=== PATIENT | female | born 1995 ===

== ENCOUNTER 2019-03-07 21:26 | Inpatient (IN) | payer MEDICAID ==
[2019-03-08] MEDS ORDERED: TERBUTALINE 1 MG/1 ML INJ SUB-Q PRN (01:38)
[2019-03-08] MEDS ORDERED: MINERAL OIL 30 ML ORAL LIQD PO PRN (01:38)
[2019-03-08] MEDS ORDERED: ePHEDrine SULFATE 50 MG/1 ML INJ IV PRN ×2 (01:38→04:04)
[2019-03-08] MEDS ORDERED: BUTORPHANOL 2 MG/1 ML INJ IV PRN (01:38)
[2019-03-08] MEDS ORDERED: LIDOCAINE (2%) 20 MG/1 ML VIAL 20 ML MDV INFILTRATI ONE ×2 (01:38→06:04)
[2019-03-08] MEDS ORDERED: ONDANSETRON 4 MG/2 ML INJ IV PRN (01:38)
[2019-03-08] MEDS ORDERED: TERBUTALINE 1 MG/1 ML INJ IVP PRN (01:38)
[2019-03-08] MEDS ORDERED: NALOXONE 0.4 MG/1 ML INJ IV PRN (01:38)
[2019-03-08 01:57] LABS: Hematocrit 35.4 % (30.3-42.9); Hemoglobin 11.6 gm/dl (10.1-14.3); Mean Corpuscular HGB Conc 33 % (30-34); Mean Corpuscular Volume 91 fl (79-97); Platelet Count 262 K/mm3 (140-440); Red Blood Count 3.88 M/mm3 (3.65-5.03); Red Cell Distribution Width 13.4 % (13.2-15.2)
[2019-03-08] MEDS: LACTATED RINGERS 1,000 ML IV SCH ×3 (02:15→03:50)
[2019-03-08] MEDS ORDERED: fentaNYL 100 MCG/2 ML INJ ONE (03:48)
[2019-03-08] MEDS ORDERED: BUPIVACAINE/PF (0.25%) 2.5 MG/ML 10 ML VIAL INFILTRATI ONE (03:48)
[2019-03-08] MEDS ORDERED: NALOXONE 2 MG/2 ML INJ IV PRN (04:04)
--- NOTE | 2019-03-08 04:04 | Anesthesia Consultation ---
Anesthesia Consult and Med Hx Date of service: 03/08/19 - Airway Anesthetic Teeth Evaluation: Good ROM Head & Neck: Adequate Mental/Hyoid Distance: Adequate Mallampati Class: Class II Intubation Access Assessment: Good - Pulmonary Exam CTA: Yes - Cardiac Exam Cardiac Exam: RRR - Pre-Operative Health Status ASA Pre-Surgery Classification: ASA2, Emergency Proposed Anesthetic Plan: Epidural - Pulmonary Hx Asthma: No - Cardiovascular System Hx Hypertension: No - Central Nervous System Hx Seizures: No Hx Psychiatric Problems: No - Endocrine Hx Renal Disease: No Hx Hypothyroidism: No Hx Hyperthyroidism: No - Hematic Hx Anemia: Yes Hx Sickle Cell Disease: No - Other Systems Hx Alcohol Use: No
[2019-03-08] MEDS ORDERED: OXYTOCIN DRIP 30,000 MILLIUNITS/500 ML BAG IV ONE ×2 (04:51→04:55)
[2019-03-08] MEDS ORDERED: fentaNYL-BUPIV 2 MCG/ML-0.125% 200 MCG/100 ML BAG EPIDURAL SCH (05:00)
--- NOTE | 2019-03-08 06:11 | History and Physical Report ---
History of Present Illness Date of examination: 03/08/19 Date of admission: 03/07/19 22:02 Chief complaint: Intense Labor Pains History of present illness: Early entry to care, course complicated by Vitamin D Deficiency and a abnormal 1hour GTT, followed by a normal 3 hour GTT. Past History Past Medical History: no pertinent history Past Surgical History: no surgical history Family/Genetic History: cancer (father: Brain CA) Social history: no significant social history, single - Obstetrical History Expected Date of Delivery: 03/19/19 Actual Gestation: 38 Week(s) 3 Day(s) : 2 Para: 1 Hx # Term Pregnancies: 1 Number of Living Children: 1 #1 Gender: Female year: 2016 Birthweight: 3.289 kg Method of Delivery: Vaginal Gestational age at delivery: 39 Medications and Allergies Allergies Allergy/AdvReac Type Severity Reaction Status Date / Time No Known Allergies Allergy Verified 04/28/13 00:06 Home Medications Medication Instructions Recorded Confirmed Last Taken Type No Known Home Medications [No 04/28/13 03/07/19 Unknown History Reported Home Medications] Active Meds: Active Medications Butorphanol Tartrate (Stadol) 2 mg IV Q2H PRN PRN Reason: Pain , Severe (7-10) Last Admin: 03/08/19 02:47 Dose: 2 mg Documented by: Ephedrine Sulfate (Ephedrine Sulfate) 10 mg IV Q2M PRN PRN Reason: Hypotension Ephedrine Sulfate (Ephedrine Sulfate) 10 mg IV Q2M PRN PRN Reason: Hypotension Lactated Ringer's (Lactated Ringers) 1,000 mls @ 125 mls/hr IV DIRECT MEENU Last Admin: 03/08/19 02:56 Dose: 125 mls/hr Documented by: Oxytocin/Sodium Chloride (Pitocin/Ns 20 Unit/1000ml Drip) 20 units in 1,000 mls @ 125 mls/hr IV DIRECT MEENU Fentanyl/Bupivacaine/Sodium Chlor (Fentanyl-Bupiv 2 Mcg/Ml-0.125%) 200 mcg in 100 mls @ 12 mls/hr EPIDURAL TITR MEENU; Protocol Last Admin: 03/08/19 04:35 Dose: 12 mls/hr Documented by: Oxytocin/Sodium Chloride (Pitocin/Ns 30 Unit/500ml) 30,000 milliunits in 500 mls @ 2 mls/hr IV DIRECT ONE; Protocol Stop: 03/18/19 14:50 Last Titration: 03/08/19 05:25 Dose: 4 milliunits/min, 4 mls/hr Documented by: Lidocaine (Xylocaine 2%) 20 ml INFILTRATI ONCE ONE Stop: 03/08/19 06:05 Mineral Oil (Mineral Oil) 30 ml PO QHS PRN PRN Reason: Constipation Naloxone HCl (Naloxone) 0.1 mg IV Q2MIN PRN PRN Reason: Res Rate </= 8 or 02 SAT < 92% Naloxone HCl (Naloxone) 0.2 mg IV Q5M PRN PRN Reason: Respiratory sedation Ondansetron HCl (Zofran) 4 mg IV Q8H PRN PRN Reason: Nausea And Vomiting Terbutaline Sulfate (Brethine) 0.25 mg SUB-Q ONCE PRN PRN Reason: Hyperstimulation/Hypertonicity Terbutaline Sulfate (Brethine) 0.25 mg IVP ONCE PRN PRN Reason: Hyperstimulation/Hypertonicity Review of Systems All systems: negative - Vital Signs Vital signs: Vital Signs Pulse BP 75 135/74 03/07/19 21:51 03/07/19 21:51 Temp Pulse Resp BP Pulse Ox 97.8 F 108 H 20 103/50 100 03/08/19 00:50 03/08/19 06:05 03/08/19 02:47 03/08/19 05:52 03/08/19 06:05 - Physical Exam Breasts: Positive: normal Cardiovascular: Regular rate Lungs: Positive: Clear to auscultation, Normal air movement Abdomen: Positive: normal appearance, soft, normal bowel sounds Genitourinary (Female): Positive: normal external genitalia, normal perenium Uterus: Positive: enlarged Anus/Rectum: Positive: normal perianal skin Extremities: Positive: edema - Obstetrical FHR: category 1 Uterine Contraction Monitor Mode: External Cervical Dilatation: 8 (Moderate amount of clear fluid upon AROM @0600) Cervical Effacement Percentage: 90 station: -1 Uterine Contraction Pattern: Irregular Uterine Tone Measurement Phase: Resting Uterine Contraction Intensity: Moderate Results Result Diagrams: 03/08/19 00:20 Abnormal lab results 03/08/19 Range/Units 00:20 WBC 14.1 H (4.5-11.0) K/mm3 All other labs normal. Assessment and Plan A: IUP @38 3/7 Weeks Category I Tracing Active Labor GBS Negative P: Admit to L&D per Routine Orders Pitocin Augmentation AROM
[2019-03-08] MEDS: OXYTOCIN 20 UNIT/1000ML DRIP 20 UNITS/1,000 ML BAG IV SCH ×2 (07:20→08:50)
--- NOTE | 2019-03-08 07:36 | Procedure Note ---
OB Delivery Note - Delivery Date of Delivery: 03/08/19 (0708) Surgeon: RAE SPENCER Estimated blood loss: 200cc - Vaginal Delivery presentation: vertex Delivery position: OA Intrapartum events: none Delivery induction: none Delivery augmentation: rupture of membranes, pitocin Delivery monitor: external FHT, external uterine Route of delivery: Delivery placenta: spontaneous Delivery cord: 3 umbilical vessels Episiotomy: none Delivery laceration: none Anesthesia: epidural Delivery comments: of a live 7'13 female over a intact perineum under epidural anesthesia with Apgars of 8 and 9 at 0708 on 03/08/2019. directly to maternal abd/chest, skin to skin contact. Spontaneous delivery of placenta complete and intact with [place] side presenting at 0714. Fundus is firm and midline located 5 below the U. Lochia is scant. Delayed cord clamping and cutting; Cord cut by the Father of the baby. Placenta discarded. - Infant A at 1 minute: 8 at 5 minutes: 9 Gender: Female (7'13)
[2019-03-08] MEDS ORDERED: diphenhydrAMINE 25 MG CAP PO PRN (08:00)
[2019-03-08] MEDS ORDERED: HYDROcodone/ACETAMINOPHEN 5-325 MG TAB PO PRN (08:00)
[2019-03-08] MEDS ORDERED: WITCH HAZEL/ GLYCERIN PAD TP PRN (08:00)
[2019-03-08] MEDS: IBUPROFEN 600 MG TAB PO SCH ×2 (11:28→17:00)
--- NOTE | 2019-03-08 11:58 | Post Anesthesia Evaluation ---
- Post Anesthesia Evaluation Patient Participated: Yes Airway Patent: Yes Stable Respiratory Function: Yes Nausea/Vomiting: No Temp > 96.8F: Yes Pain Manageable: Yes Adequeate Hydration: Yes Anesthesia Complications: No Block Receding Appropriately: Yes Patient on Ventilator: No
[2019-03-08 20:45] LABS: Hematocrit 31.4 % (30.3-42.9); Hemoglobin 10.4 gm/dl (10.1-14.3)
[2019-03-09] MEDS: IBUPROFEN 600 MG TAB PO SCH ×2 (03:06→09:06)
--- NOTE | 2019-03-09 11:53 | Progress Note ---
Assessment and Plan A: PPD#1 s/p Stable P: Routine PP orders Discharge home today Subjective - Subjective Date of service: 03/09/19 Principal diagnosis: PPD#1 s/p Patient reports: appetite normal, voiding normally, pain well controlled, flatus, ambulating normally, no bowel movement [place]: doing well Objective - Vital Signs Latest vital signs: Vital Signs Temp Pulse Resp BP BP Pulse Ox 03/09/19 08:00 98.1 F 70 20 105/54 03/09/19 00:57 98.1 F 82 18 103/47 98 03/08/19 20:55 98.2 F 89 20 116/61 99 03/08/19 17:21 98.3 F 66 18 115/59 98 Intake and Output 03/08/19 03/09/19 03/09/19 23:59 07:59 15:59 Intake Total 610 240 120 Output Total 700 Balance -90 240 120 Intake: IV 10 Left Hand 10 Oral 360 240 120 Intake, Free Water 240 Output: Urine 700 Void 700 Other: Total, Intake Amount 360 120 120 Total, Output Amount 700 # Voids Void 2 1 1 - Exam Breasts: Present: normal Cardiovascular: Present: Regular rate, Normal S1, Normal S2, No murmurs Lungs: Present: Clear to auscultation, Normal air movement Abdomen: Present: normal appearance, soft, normal bowel sounds. Absent: distention Vulva: both: normal Extremities: Present: normal Deep Tendon Reflex Grade: Normal +2
--- NOTE | 2019-03-09 11:54 | Discharge Summary ---
Providers - Providers Date of Admission: 03/07/19 22:02 Date of discharge: 03/09/19 Attending physician: DORIAN GOLD Primary care physician: DORIAN GOLD Hospitalization Reason for admission: IUP at term Delivery: Procedure details: See Delivery note Episiotomy: none Laceration: none Other procedures: none complications: none Discharge diagnosis: IUP at term delivered [place] baby: female Condition at discharge: Good Disposition: DC-01 TO HOME OR SELFCARE Plan - Provider Discharge Summary Activity: routine, no sex for 6 weeks, no heavy lifting 4 weeks, no strenuous exercise Diet: routine Instructions: routine Additional instructions: [] Smoking cessation referral if applicable(refer to patient education folder for contact #) [] Refer to [facility] Booklet Call your doctor immediately for: * Fever > 100.5 * Heavy vaginal bleeding ( >1 pad per hour) * Severe persistent headache * Shortness of breath * Reddened, hot, painful area to leg or breast * Drainage or odor from incision. * Keep incision clean and dry at all times and follow doctor's instructions regarding bathing/showering - Follow up plan Follow up: DORIAN GOLD MD [Primary Care Provider] - 6 Weeks
[2019-03-09 13:14] VITALS: BP 118/57
== END 2019-03-09 14:00 | disposition home or self-care (01) | DRG 775 ==
LOC: TRG 21:26 → OBSVTOIN 22:02 → LD 22:02 → TRG 22:02 → OB 03-08 09:38
PROVIDERS: ADMIT Obstetrics & Gynecology; ATTEND Obstetrics & Gynecology
PROC: 10E0XZZ Delivery of Products of Conception, External Approach (ICD-10-PCS; principal; 2019-03-08)
PROC: 3E0R3BZ Introduction of Anesthetic Agent into Spinal Canal, Percutaneous Approach (ICD-10-PCS; 2019-03-08)
PROC: 00HU33Z Insertion of Infusion Device into Spinal Canal, Percutaneous Approach (ICD-10-PCS; 2019-03-08)
PROC: 10907ZC Drainage of Amniotic Fluid, Therapeutic from Products of Conception, Via Natural or Artificial Opening (ICD-10-PCS; 2019-03-08)
DX: O80 Encounter for full-term uncomplicated delivery (principal); Z3A.38 38 weeks gestation of pregnancy; Z37.0 Single live birth; Z80.3 Family history of malignant neoplasm of breast
CPT/HCPCS: 36415; 85014; 85018; 85027; 86592; 86850; 86900; 86901; G0378; J0595; J2590; J3010; J7120

== ENCOUNTER 2021-06-09 04:52 | Inpatient (IN) | payer MEDICAID ==
--- NOTE | 2021-06-09 07:32 | History and Physical Report ---
History of Present Illness Date of examination: 06/09/21 Date of admission: 06/09/2021 Chief complaint: Contractions History of present illness: 25 y/o at 39-1/7 weeks presents to OBT reporting regular and painful CTX q 4 min. No VB or LOF. Good FM. In OBT, cervical exam is 4/75%/-2. She is admitted to L&D in labor. Past History Past Medical History: no pertinent history Past Surgical History: no surgical history Family/Genetic History: none Social history: no significant social history - Obstetrical History Expected Date of Delivery: 06/15/21 Actual Gestation: 39 Week(s) 1 Day(s) : 3 Para: 2 Hx # Term Pregnancies: 2 Medications and Allergies Allergies Allergy/AdvReac Type Severity Reaction Status Date / Time No Known Allergies Allergy Verified 04/28/13 00:06 Home Medications Medication Instructions Recorded Confirmed Last Taken Type Pnv Plus Multivit Tab 1 tab PO QDAY 06/09/21 06/09/21 06/08/21 10:00 History Vitamin D (Nf) 1 tab PO QDAY 06/09/21 06/09/21 06/08/21 10:00 History Review of Systems All systems: negative - Vital Signs Vital signs: Vital Signs Pulse BP 85 122/61 06/09/21 05:27 06/09/21 05:27 Temp Pulse Resp BP Pulse Ox 98.1 F 85 18 122/61 06/09/21 05:38 06/09/21 05:38 06/09/21 05:38 06/09/21 05:38 - Physical Exam Breasts: Positive: normal Cardiovascular: Regular rate Lungs: Positive: Normal air movement Abdomen: Positive: normal appearance Genitourinary (Female): Positive: normal external genitalia Vulva: both: normal Vagina: Positive: normal moisture Uterus: Positive: enlarged Adnexa: both: normal Anus/Rectum: Positive: normal perianal skin Extremities: Positive: normal Deep Tendon Reflex Grade: Normal +2 - Obstetrical FHR: category 1 Uterine Contraction Monitor Mode: Palpation Cervical Dilatation: 4 Cervical Effacement Percentage: 75 station: -2 Uterine Contraction Frequency (min): 4 Uterine Contraction Pattern: Regular Uterine Contraction Intensity: Moderate Results All other labs normal. Ultrasound: pending Assessment and Plan - Patient Problems (1) 39 weeks gestation of Current Visit: Yes Status: Acute Plan to address problem: care is up-to-date at [facility] [employer]. She is GBS (-). (2) Labor abnormality, antepartum Current Visit: Yes Status: Acute Plan to address problem: Admit to L&D. Augment with Pitocin. AROM when possible.
[2021-06-09 07:39] LABS: Basophils % (Auto) 0.2 % (0.0-1.8); Eosinophils # (Auto) 0.1 K/mm3 (0.0-0.4); Eosinophils % (Auto) 0.5 % (0.0-4.3); Hematocrit 29.5 % (30.3-42.9); Lymphocytes # (Auto) 2.4 K/mm3 (1.2-5.4); Lymphocytes % (Auto) 18.3 % (13.4-35.0); Mean Corpuscular HGB Conc 34 % (30-34); Mean Corpuscular Volume 86 fl (79-97); Monocytes # (Auto) 0.7 K/mm3 (0.0-0.8); Monocytes % (Auto) 5.1 % (0.0-7.3); Platelet Count 269 K/mm3 (140-440); Red Blood Count 3.44 M/mm3 (3.65-5.03); Red Cell Distribution Width 14.8 % (13.2-15.2)
[2021-06-09] MEDS ORDERED: LACTATED RINGERS 1,000 ML ONE (08:22)
--- NOTE | 2021-06-09 08:23 | Ultrasound Report ---
OBSTETRIC ULTRASOUND INDICATION: Labor COMPARISON: No prior relevant imaging studies are available for comparison. TECHNIQUE: Transabdominal imaging was performed. FINDINGS: Single viable intrauterine is identified. lie: Cephalic. Heart rate: 141 bpm. measurements are as follows: Biparietal diameter 9.7 cm, 39 weeks 5 days Head circumference 34.4 cm, 39 weeks 5 days Abdominal circumference 35.1 cm, 39 weeks 0 days Femur length 7.9 cm, 40 weeks 1 day Estimated weight at this time is 3790 g. Amniotic fluid index is 4.5 cm, low. No placental abnormalities are seen. There is a grade 2 anterio r/fundal placenta. CONCLUSION: Single viable intrauterine currently in cephalic position with estimated weight of 3790 g. Amniotic fluid index is decreased at 4.5 cm. Signer Name: Mathew Merchant MD Signed: 06/09/2021 8:18 AM Workstation Name: [id number]
[2021-06-09] MEDS: LACTATED RINGERS 1,000 ML IV SCH ×2 (08:25→10:35)
[2021-06-09] MEDS ORDERED: OXYTOCIN DRIP 30 UNITS/500 ML BAG IV SCH ×3 (09:00→14:00)
--- NOTE | 2021-06-09 09:35 | Anesthesia Consultation ---
Anesthesia Consult and Med Hx Date of service: 06/09/21 - Airway Anesthetic Teeth Evaluation: Good ROM Head & Neck: Adequate Mental/Hyoid Distance: Adequate Mallampati Class: Class II Intubation Access Assessment: Probably Good - Pulmonary Exam CTA: Yes - Cardiac Exam Cardiac Exam: RRR - Pre-Operative Health Status ASA Pre-Surgery Classification: ASA2 Proposed Anesthetic Plan: Epidural - Pulmonary Hx Smoking: No Hx Asthma: No Hx Sleep Apnea: No - Cardiovascular System Hx Hypertension: No Hx Heart Attack/AMI: No Hx Angina: No - Central Nervous System Hx Seizures: No Hx Psychiatric Problems: No - Gastrointestinal Hx Gastroesophageal Reflux Disease: No - Endocrine Hx Renal Disease: No Hx Liver Disease: No Hx Insulin Dependent Diabetes: No Hx Non-Insulin Dependent Diabetes: No Hx Hypothyroidism: No Hx Hyperthyroidism: No - Hematic Hx Anemia: No Hx Sickle Cell Disease: No - Other Systems Hx Alcohol Use: No
--- NOTE | 2021-06-09 09:36 | Progress Note ---
Labor Epidural - Labor Epidural Start Time: 09:15 Stop Time: 09:30 Performed by:: AYANNA ZAMORANO Procedure: Patient is requesting epidural for labor and pain. H&P, labs were reviewed. Patient IDed, H&P reviewed, all questions and concerns were answered, and consent was signed. Timeout was performed at bedside. Patient in sitting position. Sterile prep and drape was performed. 3ml of 1% lidocaine skin wheal at L[3]- L [4]. 17-gauge Tuohy epidural needle was advanced to loss of resistance with air technique 5.5cm. Negative CSF negative blood. Epidural catheter advanced to [11] centimeters. [negative] Aspiration [negative] test dose. Sterile dressing applied. Patient tolerated procedure.
[2021-06-09] MEDS ORDERED: TERBUTALINE 1 MG/1 ML INJ SUB-Q PRN (10:00)
[2021-06-09] MEDS ORDERED: LOPERAMIDE 2 MG CAP PO PRN (10:00)
[2021-06-09] MEDS ORDERED: NALOXONE 2 MG/2 ML INJ IV PRN (10:00)
[2021-06-09] MEDS ORDERED: miSOPROStol 200 MCG TAB PR PRN (10:00)
[2021-06-09] MEDS ORDERED: fentaNYL-BUPIV 2 MCG/ML-0.125% 200 MCG/100 ML BAG EPIDURAL SCH (10:00)
[2021-06-09] MEDS ORDERED: ePHEDrine SULFATE 50 MG/1 ML INJ IV PRN ×2 (10:00)
[2021-06-09] MEDS ORDERED: ONDANSETRON 4 MG/2 ML INJ IV PRN ×2 (10:00→15:00)
[2021-06-09] MEDS ORDERED: diphenhydrAMINE 50 MG/ML VIAL IV PRN (10:00)
[2021-06-09] MEDS ORDERED: LIDOCAINE (2%) 20 MG/1 ML VIAL 20 ML MDV INFILTRATI ONE (10:00)
[2021-06-09] MEDS ORDERED: LACTATED RINGERS 250 ML IV SOLN IV ONE (10:00)
[2021-06-09] MEDS ORDERED: BUTORPHANOL 2 MG/1 ML INJ IV PRN ×2 (10:00)
[2021-06-09] MEDS ORDERED: CARBOPROST TROMETHAMINE 250 MCG/1 ML INJ IM PRN (10:00)
[2021-06-09] MEDS ORDERED: NalbUPHINE 10 MG/1 ML INJ IV PRN (10:00)
[2021-06-09] MEDS ORDERED: OXYTOCIN 10 UNIT/1 ML INJ IM PRN (10:00)
[2021-06-09] MEDS ORDERED: METHYLERGONOVINE MALEATE 0.2 MG/ML VIAL IM PRN (10:00)
[2021-06-09] MEDS ORDERED: fentaNYL 100 MCG/2 ML INJ IV PRN (10:00)
[2021-06-09] MEDS ORDERED: ACETAMINOPHEN 325 MG TAB PO PRN ×2 (10:00→15:00)
[2021-06-09] MEDS ORDERED: WITCH HAZEL/ GLYCERIN PAD TP PRN (15:00)
[2021-06-09] MEDS ORDERED: PROMETHAZINE 25 MG TAB PO PRN (15:00)
[2021-06-09] MEDS ORDERED: diphenhydrAMINE 25 MG CAP PO PRN (15:00)
[2021-06-09] MEDS ORDERED: LANOLIN/ZINC/DIMETHICONE (LANSINOH) 7 GM TP PRN (15:00)
--- NOTE | 2021-06-09 15:01 | Procedure Note ---
OB Delivery Note - Delivery Date of Delivery: 06/09/21 Surgeon: OKSANA ELIZALDE Estimated blood loss: 100cc - Vaginal Delivery presentation: vertex Delivery position: OA Intrapartum events: none Delivery induction: none Delivery augmentation: rupture of membranes Delivery monitor: external FHT, external uterine Route of delivery: Delivery placenta: spontaneous Delivery cord: 3 umbilical vessels Episiotomy: none Delivery laceration: none Anesthesia: epidural Delivery comments: of a viable female infant over an intact perineum. Infant immediately to mom's chest for skin to skin bonding. Delayed cord clamping while nurse dried and stimulated baby. Cord was clamped x 2 and FOB was guided in cutting the cord. Baby was taken to the infant warmer by NICU nurse for an initial asses 8/9. Spontaneous delivery of an intact placenta with 3CV. FF@ U3 with fundal massage and IV Pitocin. No tears or lac were noted. FW 3550 Gms, QBL 100cc per nurse. Mom and baby was left in stable condition with nurses. - A at 1 minute: 8 at 5 minutes: 9 Infant Gender: Female
[2021-06-09] MEDS ORDERED: PROMETHAZINE 25 MG RECT SUPP PR PRN (16:00)
[2021-06-09] MEDS: oxyCODONE /ACETAMINOPHEN 5-325MG TAB PO PRN (20:23)
[2021-06-09] MEDS ORDERED: MINERAL OIL 30 ML ORAL LIQD PO PRN (22:00)
[2021-06-09] MEDS ORDERED: MAGNESIUM HYDROXIDE (MOM) ORAL LIQD UDC PO PRN (22:00)
[2021-06-10] MEDS: IBUPROFEN 800 MG TAB PO SCH ×3 (00:26→18:37)
[2021-06-10 06:18] LABS: Hemoglobin 8.8 gm/dl (10.1-14.3)
[2021-06-10] MEDS ORDERED: PRENATAL VIT27-FE FUMARATE-FOLIC ACID VIT TAB PO SCH (10:00)
--- NOTE | 2021-06-10 11:36 | Progress Note ---
Assessment and Plan A: PP Day #1 Asymptomatic Anemia P: Follow Routine Orders FeSO4 325mg PO BID D/C Home today per patient request RTO in 6 Weeks Subjective - Subjective Date of service: 06/10/21 Patient reports: appetite normal, voiding normally, pain well controlled, flatus, bowel movement, ambulating normally : doing well, bottle feeding (and ) Objective - Vital Signs Latest vital signs: Vital Signs Temp Pulse Resp BP BP Pulse Ox Pulse Ox 06/10/21 08:45 97.7 F 77 18 105/62 98 98 06/10/21 00:20 98.2 F 80 20 96/50 99 06/09/21 20:00 98 06/09/21 17:15 98.6 F 87 20 108/61 98 98 06/09/21 16:41 99 F 92 H 06/09/21 16:40 90 100/53 06/09/21 16:39 88 98 06/09/21 16:34 102 H 98 06/09/21 16:29 92 H 98 06/09/21 16:24 99 H 102/62 98 06/09/21 16:19 93 H 99 06/09/21 16:14 95 H 98 06/09/21 16:09 97 H 99 06/09/21 16:08 96 H 109/61 06/09/21 16:04 93 H 99 06/09/21 15:59 88 99 06/09/21 15:54 91 H 98 06/09/21 15:53 96 H 113/59 06/09/21 15:49 96 H 99 06/09/21 15:44 102 H 98 06/09/21 15:39 95 H 110/54 99 06/09/21 15:34 96 H 99 06/09/21 15:29 91 H 99 06/09/21 15:24 97 H 110/58 99 06/09/21 15:19 88 99 06/09/21 15:16 93 H 92 06/09/21 15:14 90 99 06/09/21 15:09 98 H 99 06/09/21 15:06 93 H 93 06/09/21 15:04 91 H 99 06/09/21 15:00 99 H 105/53 06/09/21 14:59 96 H 99 06/09/21 14:55 96 H 107/50 06/09/21 14:54 94 H 99 06/09/21 14:51 97 H 111/55 06/09/21 14:49 98 H 100 06/09/21 14:48 95 H 91 06/09/21 14:44 93 H 100 06/09/21 14:39 99 H 100 06/09/21 14:34 97 H 99 06/09/21 14:30 86 103/52 06/09/21 14:29 86 100 06/09/21 14:26 93 H 117/66 06/09/21 14:24 90 100 06/09/21 14:19 105 H 100 06/09/21 14:18 104 H 92 06/09/21 14:14 88 100 06/09/21 14:09 84 100 06/09/21 14:04 106 H 98 06/09/21 14:03 93 H 111/65 06/09/21 13:59 93 H 99 06/09/21 13:58 99.3 F 92 H 06/09/21 13:54 87 98 06/09/21 13:51 84 109/63 06/09/21 13:49 95 H 100 06/09/21 13:44 86 99 06/09/21 13:39 91 H 99 06/09/21 13:34 93 H 99 06/09/21 13:33 91 H 111/56 06/09/21 13:29 89 99 06/09/21 13:24 89 99 06/09/21 13:20 90 112/55 06/09/21 13:19 89 99 06/09/21 13:14 92 H 99 06/09/21 13:09 89 98 06/09/21 13:04 89 97/62 99 06/09/21 12:59 88 99 06/09/21 12:54 95 H 98 06/09/21 12:50 86 118/56 06/09/21 12:49 86 99 06/09/21 12:44 84 99 06/09/21 12:39 85 100 06/09/21 12:34 77 99 06/09/21 12:33 81 93/50 06/09/21 12:29 88 98 06/09/21 12:24 85 99 06/09/21 12:20 86 101/57 06/09/21 12:19 88 98 02/22/22 12:14 93 H 98 06/09/21 12:09 86 98 06/09/21 12:04 86 115/54 99 06/09/21 11:59 89 99 06/09/21 11:54 86 99 06/09/21 11:49 93 H 98 06/09/21 11:48 86 103/58 06/09/21 11:44 85 99 06/09/21 11:39 91 H 98 Intake and Output 06/09/21 06/10/21 06/10/21 22:59 06:59 14:59 Intake Total 120 120 Output Total 400 Balance 120 -280 Intake: Oral 120 120 Output: Urine 400 Void 400 Other: Total, Intake Amount 120 120 Total, Output Amount 400 # Voids Void 1 - Exam Breasts: Present: normal Cardiovascular: Present: Regular rate Lungs: Present: Clear to auscultation, Normal air movement Abdomen: Present: normal appearance, soft, normal bowel sounds Uterus: Present: normal, firm, fundal height below umbilicus Extremities: Present: normal - Labs Labs: Abnormal lab results 06/10/21 Range/Units 05:47 Hgb 8.8 L (10.1-14.3) gm/dl Hct 27.0 L (30.3-42.9) %
--- NOTE | 2021-06-10 11:37 | Discharge Summary ---
Providers - Providers Date of Admission: 06/09/21 08:38 Date of discharge: 06/10/21 Attending physician: MARIVEL MONTEZ Primary care physician: MARIVEL MONTEZ Hospitalization Reason for admission: active labor Delivery: Episiotomy: none Laceration: none Other procedures: none complications: none Discharge diagnosis: IUP at term delivered [place] baby: female Condition at discharge: Good Disposition: 01 HOME / SELF CARE / HOMELESS Plan - Provider Discharge Summary Activity: routine, no sex for 6 weeks, no heavy lifting 4 weeks, no strenuous exercise Diet: routine Instructions: routine Additional instructions: [] Smoking cessation referral if applicable(refer to patient education folder for contact #) [] Refer to [facility] Booklet Call your doctor immediately for: * Fever > 100.5 * Heavy vaginal bleeding ( >1 pad per hour) * Severe persistent headache * Shortness of breath * Reddened, hot, painful area to leg or breast * Drainage or odor from incision. * Keep incision clean and dry at all times and follow doctor's instructions regarding bathing/showering - Follow up plan Follow up: MARIVEL MONTEZ MD [Primary Care Provider] - 6 Weeks
[2021-06-10] MEDS ORDERED: FERROUS SULFATE 325 MG TAB PO SCH (12:00)
[2021-06-10] MEDS: oxyCODONE /ACETAMINOPHEN 5-325MG TAB PO PRN (19:54)
[2021-06-11] MEDS: IBUPROFEN 800 MG TAB PO SCH ×2 (06:22→09:40)
[2021-06-11 09:36] VITALS: BP 117/63
== END 2021-06-11 09:20 | disposition home or self-care (01) | DRG 775 ==
LOC: TRG 04:52 → APU 04:55 → LD 06:34 → TRG 09:16 → OB 17:32
PROVIDERS: ADMIT Obstetrics & Gynecology; ATTEND Obstetrics & Gynecology
PROC: 10E0XZZ Delivery of Products of Conception, External Approach (ICD-10-PCS; principal; 2021-06-09)
PROC: 3E0R3BZ Introduction of Anesthetic Agent into Spinal Canal, Percutaneous Approach (ICD-10-PCS; 2021-06-09)
PROC: 00HU33Z Insertion of Infusion Device into Spinal Canal, Percutaneous Approach (ICD-10-PCS; 2021-06-09)
DX: O90.81 Anemia of the puerperium (principal); Z3A.39 39 weeks gestation of pregnancy; Z37.0 Single live birth; Z20.822 Contact with and (suspected) exposure to COVID-19
CPT/HCPCS: 36415; 59025; 76816; 85014; 85018; 85025; 86592; 86850; 86900; 86901; G0378; J3490; J7120; U0003